=== PATIENT | male | born 1940 | race Caucasian/White ===

== ENCOUNTER 2016-10-06 11:42 | Day surgery (SDC) | payer MEDICARE, BC ==
[~2016-10-06] VITALS: Ht 182.9 cm; Wt 90.9 kg
[2016-10-06] MEDS ORDERED: COREG12.5 MG PO (12:11)
[2016-10-06] MEDS ORDERED: CRESTOR10 MG PO (12:12)
[2016-10-06] MEDS ORDERED: BAYER CHEWABLE81 MG PO (12:12)
[2016-10-06] MEDS ORDERED: DIOVAN40 MG PO (12:12)
[2016-10-06 12:14] VITALS: BP 132/68; Ht 182.9 cm; Wt 90.9 kg
[2016-10-06 12:29] LABS: BASOPHILS 0.4 % (0.0-2.0); EOSINOPHILS 1.3 % (0-7); HEMATOCRIT 42.6 % (42.0-54.0); HEMOGLOBIN 14.7 g/dL (13.5-17.5); IMMATURE GRANULOCYTES 0.2 % (0-5); LYMPHOCYTES 38.3 % (15-50); MCH 31.8 pg (26.0-34.0); MCHC 34.5 g/dL (31.0-37.0); MCV 92.2 fL (80.0-100.0); MEAN PLATELET VOLUME 10.7 fL (7.4-10.4); MONOCYTES 7.5 % (2-11); NEUTROPHILS 52.3 % (40-80); PLATELET COUNT 166 10x3/uL (130-400); RBC 4.62 10x6/uL (4.20-6.10); RDW 13.4 % (11.5-14.5); WBC 5.3 10x3/uL (4.8-10.8)
[2016-10-06 12:45] LABS: CALC OSMOLALITY 278 mosm/kg (275-300); CALCIUM 8.8 mg/dL (8.5-10.1); CARBON DIOXIDE 25.8 mmol/L (21.0-32.0); CHLORIDE - SERUM 105 mmol/L (98-107); CREATININE - SERUM 0.9 mg/dL (0.6-1.3); GLUCOSE 96 mg/dL (74-106); POTASSIUM - SERUM 4.1 mmol/L (3.5-5.1); SODIUM 140 mmol/L (136-145); UREA NITROGEN 13 mg/dL (7-18); eGFR NON AFRICAN AMERICAN 88 mL/min (90-120)
--- NOTE | 2016-10-06 15:18 | NUR ---
1425- PT BACK TO ROOM. DR. LEES AT BEDSIDE, SPOKE WITH PT AND PT'S . 1455- IV D/C'D, PT TOLERATED. CATHETER INTACT. UP OOB TO BR, VOIDED WITHOUT DIFFICULTY. 1510- DISCHARGE INSTRUCTIONS COMPLETED. PT VERBALIZED UNDERSTANDING, SIGNED PAPERWORK 1515- PT DISCHARGED VIA WHEELCHAIR.
--- NOTE | 2016-10-26 11:24 | OP ---
PATIENT NAME: FAITH AKBAR MEDICAL RECORD: [id number] :42 LOCATION:D[facility] ADMISSION DATE: SURGEON: ANNMARIE HURLEY MD DATE OF OPERATION: 10/06/2016 PROCEDURE: Colonoscopy without bowel biopsy or polypectomy. STOCK PREPARER: Annmarie Hurley MD. SCOPE: Olympus video colonoscope. MEDICATIONS: Per TIVA anesthesia. The patient has a decreased ejection fraction, cardiac arrhythmias and has had an AICD pacemaker placed, also has had a CABG and during this procedure had asystole. INDICATION FOR THE PROCEDURE: Colon cancer screening, a family history of colon cancer in his mother. FINDINGS: Informed consent was given. The patient was made comfortable with 240 mg of propofol given in small increments, O2 of 4 liters. After reaching an adequate level of sedation by slow IV push, the patient was placed on his left side. The endoscope was then advanced under direct visualization to the cecum where the ileocecal valve and appendiceal orifice were identified. On withdrawal of the scope, mucosa was carefully inspected. The patient was seen to have a fairly normal tissue throughout. No polyps or masses were appreciated. The patient did have left-sided diverticulosis without diverticulitis. On retroflexion and final withdrawal of the scope, hemorrhoids were observed, which were seen to be very mild. IMPRESSION: 1. Normal cecum. Ileocecal valve and appendiceal orifice were identified. 2. Left-sided diverticulosis without diverticulitis. 3. Mild hemorrhoids. 4. No polyps, masses or inflammation noted. PLAN: 1. Continue all medications. 2. High fiber diet. 3. Return to clinic on a p.r.n. basis. TRANSINT:[id number] Voice Confirmation ID: [id number] DOCUMENT ID: [id number] CC: Reshma Paul APN, [facility] Dr. Triplett, cannot locate ANNMARIE HURLEY MD at 1124 CC: [id number] DICTATION DATE: 10/06/16 1416 [place] REPORT DEVELOPER: 10/06/16 1519 [facility] 10/06/16 [place] [address]
== END 2016-10-06 15:15 | disposition home or self-care (01) ==
LOC: D.OPS 11:42
PROVIDERS: Anesthesiology
DX: Z12.11 Encounter for screening for malignant neoplasm of colon (principal); K57.30 Diverticulosis of large intestine without perforation or abscess without bleeding; K64.9 Unspecified hemorrhoids; Z80.0 Family history of malignant neoplasm of digestive organs; I49.9 Cardiac arrhythmia, unspecified; Z95.810 Presence of automatic (implantable) cardiac defibrillator; Z95.1 Presence of aortocoronary bypass graft